=== PATIENT | female | born 1940 | race Caucasian/White ===

== ENCOUNTER → 2018-04-09 | Outpatient (REF) | payer MEDICARE ==
[2018-04-09 07:50] LABS: HEMATOCRIT 43.5 % (37.0-47.0); HEMOGLOBIN 13.3 g/dl (12.0-16.0); IMMATURE GRANULOCYTES 0.5 % (0.0-5.0); MEAN CELL VOLUME 85.1 fL CALC (80.0-100.0); MEAN CORPUSCULAR HGB CONC 30.6 g/L CALC (32.0-36.0); NEUT# 8.14 thou/uL (2.00-7.15); RED BLOOD COUNT 5.11 mill/uL (4.20-5.60); RED CELL DISTRI WIDTH 15.3 % (11.5-15.5)
[2018-04-09 08:18] LABS: ALBUMIN 3.5 g/dL (3.2-5.0); BILIRUBIN, TOTAL 0.3 mg/dL (0.0-1.4); CREATININE 1.6 mg/dL (0.5-1.0); POTASSIUM 4.7 mmol/l (3.5-5.1); TOTAL PROTEIN 6.6 g/dL (6.3-8.2)
[2018-04-09 08:47] LABS: TSH, 3RD GENERATION 2.38 uIU/mL (0.47 - 4.68)
== END | disposition home or self-care (01) ==
LOC: LAB 06:39
PROVIDERS: ATTEND Internal Medicine
DX: E11.69 Type 2 diabetes mellitus with other specified complication (principal)

== ENCOUNTER 2018-07-07 17:03 | Emergency (ER) | payer MEDICARE ==
[~2018-07-07] VITALS: Ht 149.9 cm; Wt 90.9 kg
[~2018-07-07 17:03] MED LIST: AMLODIPINE10 MG PO; BENAZEPRIL10 M1 PO; LIPITOR10 M1 PO; METOPROLOL SUCC25 MG PO; PLAVIX75 MG PO; TRULICITY0.75 MG/0.
[2018-07-07] MEDS ORDERED: MEDDOSEPAK PO ×2 (18:57→19:19)
[2018-07-07] MEDS ORDERED: DICLOFENAC50 MG PO ×2 (18:57→19:19)
[2018-07-07 19:20] VITALS: BP 170/92
== END 2018-07-07 19:20 | disposition home or self-care (01) ==
LOC: ED 17:03
DX: M25.531 Pain in right wrist (principal); M81.0 Age-related osteoporosis without current pathological fracture; E11.9 Type 2 diabetes mellitus without complications; I10 Essential (primary) hypertension

== ENCOUNTER → 2018-08-22 | Outpatient (REF) | payer MEDICARE ==
[~2018-08-22] MED LIST changes: +DICLOFENAC50 MG PO; +MEDDOSEPAK PO
== END | disposition home or self-care (01) ==
LOC: STRESS 15:33 → NUCMED 15:45
PROVIDERS: ATTEND Internal Medicine
DX: I25.119 Atherosclerotic heart disease of native coronary artery with unspecified angina pectoris (principal); R01.1 Cardiac murmur, unspecified; R06.02 Shortness of breath
CPT/HCPCS: A9502; J0706; J2785

== ENCOUNTER 2019-07-30 | Day surgery (SDC) | payer MEDICARE ==
[~2019-07-30] MED LIST changes: +ASPIRIN 81 LOW81 MG PO; +BENAZEPRIL5 MG PO; +CLOPIDOGREL75 MG PO; +FE TABS325 MG PO; +FUROSEMIDE20 MG PO; +METOPROL TAR25 MG PO; +MULT VITAMIN PO; +NORVASC5 M1 PO; +RAYALDEE30 MCG PO; +TRADJENTA5 MG PO; +TRESIBA100 UNIT/M
== END 2019-07-30 09:28 | disposition home or self-care (01) ==
PROC: 0DJD8ZZ Inspection of Lower Intestinal Tract, Via Natural or Artificial Opening Endoscopic (ICD-10-PCS; principal; 2019-07-30)
DX: Z12.11 Encounter for screening for malignant neoplasm of colon (principal); K57.30 Diverticulosis of large intestine without perforation or abscess without bleeding; I10 Essential (primary) hypertension; E11.9 Type 2 diabetes mellitus without complications; Z86.010 Personal history of colon polyps

== ENCOUNTER 2021-06-14 14:01 | Emergency (ER) | payer MEDICARE ==
[~2021-06-14] VITALS: Ht 149.9 cm; Wt 98.0 kg
[2021-06-14 14:50] LABS: IMMATURE GRANULOCYTES 0.9 % (0.0-5.0); MEAN CELL VOLUME 90.7 fL CALC (80.0-100.0); MEAN CORPUSCULAR HGB 27.5 pG CALC (26.0-32.0); MEAN CORPUSCULAR HGB CONC 30.3 g/dL CAL (32.0-36.0); PLATELET COUNT 345 thou/uL (130-400); RED BLOOD COUNT 3.64 mill/uL (4.20-5.60); RED CELL DISTRI WIDTH 15.7 % (11.5-15.5)
[2021-06-14 14:52] LABS: MANUAL DIFFERENTIAL YES
[2021-06-14 15:07] LABS: ALBUMIN 2.8 g/dL (3.2-5.0); POTASSIUM 4.3 mmol/l (3.5-5.1); TOTAL PROTEIN 6.5 g/dL (6.3-8.2)
[2021-06-14 15:11] LABS: BAND 2 % (0-8); PLATELET ESTIMATE NORMAL
[2021-06-14 15:13] LABS: BILIRUBIN, TOTAL 1.3 mg/dL (0.0-1.4)
[2021-06-14 15:14] LABS: CREATININE 7.4 mg/dL (0.5-1.0)
[2021-06-14 15:31] LABS: URINE BLOOD DIPSTICK MODERATE (NEGATIVE); URINE GLUCOSE - DIPSTICK NEGATIVE (NEGATIVE); URINE KETONE TRACE mg/dL (NEGATIVE); URINE PROTEIN - DIPSTICK 100 mg/dL (NEG-TRACE); URINE UROBILINOGEN - DIPSTICK 0.2 E.U./dL (0.2)
[2021-06-14 15:34] LABS: URINE COLOR DK. YELLOW; URINE LEUK ESTERASE LARGE (NEGATIVE); URINE NITRITE - DIPSTICK NEGATIVE (Negative)
[2021-06-14 15:35] LABS: URINE BILIRUBIN - DIPSTICK NEGATIVE (NEGATIVE)
[2021-06-14 15:46] LABS: URINE BACTERIA MANY hpf; URINE SQUAMOUS EPITHELIAL CELL MODERATE EPI/hpf (0-FEW); URINE WBC 20-50 WBC/hpf (0-5)
[2021-06-14 16:15] VITALS: BP 107/49
== END 2021-06-14 17:01 | disposition short-term general hospital (02) ==
LOC: ED 14:01
PROVIDERS: Family Medicine
DX: A41.9 Sepsis, unspecified organism (principal); I47.2 Ventricular tachycardia; L89.154 Pressure ulcer of sacral region, stage 4; G45.9 Transient cerebral ischemic attack, unspecified; I12.0 Hypertensive chronic kidney disease with stage 5 chronic kidney disease or end stage renal disease; E11.22 Type 2 diabetes mellitus with diabetic chronic kidney disease; N18.6 End stage renal disease; E78.5 Hyperlipidemia, unspecified; R53.1 Weakness; R82.71 Bacteriuria; Z99.2 Dependence on renal dialysis; Z93.1 Gastrostomy status; Z85.51 Personal history of malignant neoplasm of bladder; Z79.4 Long term (current) use of insulin; Z90.6 Acquired absence of other parts of urinary tract; Z93.6 Other artificial openings of urinary tract status; Z20.822 Contact with and (suspected) exposure to COVID-19